=== PATIENT | male | born 1980 | race African-American/Black ===

== ENCOUNTER 2023-08-28 22:44 | Emergency (ER) | payer SELFPAY ==
[~2023-08-28] VITALS: Ht 170.2 cm; Wt 80.8 kg
[2023-08-28 23:27] VITALS: O2SAT 100
[2023-08-29] MEDS ORDERED: DIPHENHYDRAMINE 50MG/ML VIAL IM PRN
[2023-08-29 00:14] LABS: HEMATOCRIT. 39.1 % (42.0-52.0); MEAN CORPUSCULAR HEMOGLOBIN 30.2 pg (28.0-32.0); MEAN CORPUSCULAR HGB CONC 33.3 g/dL (31.0-37.0); MEAN CORPUSCULAR VOLUME 90.6 fL (80.0-94.0); PLATELET 345 x1000/uL (130-400); RED BLOOD CELL COUNT 4.32 mill/uL (4.7-6.1); RED CELL DISTRIBUTION WIDTH 13.9 % (11.6-14.6); WHITE BLOOD COUNT 23.2 x1000/uL (4.5-11.0)
[2023-08-29 00:16] LABS: DIFFERENTIAL COMMENT 1
[2023-08-29 00:19] LABS: CHLORIDE 104 mEq/L (98-107); POTASSIUM 3.8 mEq/L (3.5-5.1); SODIUM 138 mEq/L (136-145)
[2023-08-29 00:20] LABS: CALCIUM 9.2 mg/dL (8.7-10.4); CARBON DIOXIDE 28 mEq/L (21-32)
[2023-08-29 00:25] LABS: CREATININE 0.9 mg/dL (0.6-1.3); GLUCOSE 110 mg/dL (70-105); UREA NITROGEN BLOOD 11 mg/dL (9-23)
[2023-08-29 00:26] LABS: ALANINE AMINOTRANSFERASE 43 IU/L (10-49)
[2023-08-29 00:27] LABS: ALBUMIN 4.6 g/dL (3.2-4.8); ASPARTATE AMINOTRANSFERASE 39 IU/L (<34); BILIRUBIN TOTAL 0.2 mg/dL (0.1-1.0); PROTEIN TOTAL 7.9 g/dL (6.0-8.3)
[2023-08-29 00:45] LABS: PLATELET ESTIMATE NORMAL
[2023-08-29 00:47] LABS: GIANT PLATELETS 1+; TEAR DROP CELLS 1+
[2023-08-29 00:48] LABS: TARGET CELLS 1+
[2023-08-29] MEDS ORDERED: DIPH25CA83 MT (01:52)
[2023-08-29] MEDS ORDERED: VALA100044 MT (01:52)
[2023-08-29] MEDS ORDERED: TRIMO RIGHTEYE (01:52)
[2023-08-29 03:32] VITALS: BP 138/74; PULSE 86; RESP 18; TEMP 97.3
[2023-08-29] MEDS: DEXAMETHASONE 4MG/ML 1ML VIAL IV ONE (03:32)
[2023-08-29] MEDS: KETOROLAC 60MG/2ML VIAL IM ONE (03:32)
== END 2023-08-29 03:33 | disposition home or self-care (01) ==
LOC: ER 22:44
DX: B00.9 Herpesviral infection, unspecified (principal); R51.9 Headache, unspecified; R50.9 Fever, unspecified; J02.9 Acute pharyngitis, unspecified
CPT/HCPCS: 99284; 80053; 85025; 36415; 96374; 96372; J1100; J1885